=== PATIENT | female | born 1990 | race American Indian/Alaskan Native ===

== ENCOUNTER 2016-10-03 12:14 | Emergency (ER) | payer OTHER ==
[2016-10-03 12:22] VITALS: BP 153/83
[2016-10-03] MEDS ORDERED: DUONEB 0.5 MG-3 MG/3 ML SOLN IH ONE (15:19)
--- NOTE | 2016-10-03 15:42 | XRay Report ---
CHEST 2 VIEWS INDICATION: Chest pain, productive cough for 2 days. Wheezing, shortness of breath. COMPARISON: None similar at this institution. FINDINGS: PA and lateral chest radiographs demonstrate normal cardiomediastinal silhouette. Clear lungs. Intact bones. CONCLUSION: No acute disease in the chest. Thank you for the opportunity to participate in this patient's care.
--- NOTE | 2016-10-03 16:08 | Emergency Department Report ---
- General Chief Complaint: Upper Respiratory Infection Stated Complaint: CHEST PAIN/SOB/BODY ACHE Time Seen by Provider: 10/03/16 15:00 Source: patient Mode of arrival: Ambulatory Limitations: No Limitations - History of Present Illness Initial Comments: Patient presents with a productive cough of green sputum, fever, body aches. She does have a history of asthma and states that she has ran out of her nebulizer treatment, she is also out of her inhaler. Symptoms present 2 days. MD Complaint: fever, cough, rhinorrhea, nasal congestion -: Gradual Severity: severe Severity scale (0 -10): 10 Quality: aching Consistency: constant Improves With: nothing Worsens With: nothing Associated Symptoms: fever, chills, myalgias, rhinorrhea, nasal congestion, cough, shortness of breath Treatments Prior to Arrival: none - Related Data Previous Rx's Medication Instructions Recorded Last Taken Type ALBUTEROL Inhaler [ProAir HFA 2 puff IH QID PRN #1 inhalation 10/03/16 Unknown Rx Inhaler] ALBUTEROL NEB's [Proventil 0.083% 2.5 mg IH TID PRN #7 neb 10/03/16 Unknown Rx NEBS] Amoxicillin [Amoxicillin TAB] 875 mg PO BID #20 tablet 10/03/16 Unknown Rx Allergies Allergy/AdvReac Type Severity Reaction Status Date / Time gustavo Allergy Swelling Verified 10/03/16 12:20 ED Review of Systems ROS: Stated complaint: CHEST PAIN/SOB/BODY ACHE Other details as noted in HPI Constitutional: denies: chills, fever ENT: as per HPI Respiratory: cough, shortness of breath, wheezing Cardiovascular: dyspnea on exertion. denies: chest pain, palpitations Endocrine: no symptoms reported Gastrointestinal: denies: abdominal pain, nausea, diarrhea Genitourinary: denies: urgency, dysuria, discharge Musculoskeletal: as per HPI Skin: denies: rash, lesions Neurological: denies: headache, weakness, paresthesias Psychiatric: denies: anxiety, depression ED Past Medical Hx - Medications Home Medications: Home Medications Medication Instructions Recorded Confirmed Last Taken Type ALBUTEROL Inhaler [ProAir HFA 2 puff IH QID PRN #1 inhalation 10/03/16 Unknown Rx Inhaler] ALBUTEROL NEB's [Proventil 0.083% 2.5 mg IH TID PRN #7 neb 10/03/16 Unknown Rx NEBS] Amoxicillin [Amoxicillin TAB] 875 mg PO BID #20 tablet 10/03/16 Unknown Rx ED Physical Exam - General Limitations: No Limitations General appearance: alert, in no apparent distress, other (ill appearance but nontoxic) - Head Head exam: Present: atraumatic, normocephalic - Eye Eye exam: Present: normal appearance, PERRL - ENT ENT exam: Present: mucous membranes moist, TM's normal bilaterally - Expanded ENT Exam Expanded Mouth exam: Present: normal external inspection Teeth exam: Present: normal inspection Throat exam: Positive: tonsillar erythema - Neck Neck exam: Present: normal inspection, full ROM. Absent: tenderness - Expanded Neck Exam Expanded Neck exam: Absent: tenderness - Respiratory Respiratory exam: Present: wheezes (right lower lobe) - Cardiovascular Cardiovascular Exam: Present: regular rate, normal rhythm. Absent: systolic murmur, diastolic murmur, rubs, gallop - GI/Abdominal GI/Abdominal exam: Present: soft, normal bowel sounds - Neurological Exam Neurological exam: Present: alert, oriented X3 - Psychiatric Psychiatric exam: Present: normal affect, normal mood - Skin Skin exam: Present: warm, dry, intact, normal color. Absent: rash ED Course Vital Signs 10/03/16 10/03/16 10/03/16 12:20 15:40 15:55 Temperature 99.0 F Pulse Rate 110 H Pulse Rate [ 97 H 117 H Posterior Bilateral Throughout] Respiratory 20 Rate Respiratory 20 20 Rate [Posterior Bilateral Throughout] Blood Pressure 153/83 O2 Sat by Pulse 97 Oximetry ED Medical Decision Making - Medical Decision Making Patient presents with productive cough of green sputum. PE shows ill appearance (nontoxic) and red throat. Also positive for asthma. I will give her amoxicillin twice a day 10 days, albuterol inhaler, albuterol nebulizer medication. I'll advise her to follow up with outpatient clinic such as health department or self for asthma treatment. - Differential Diagnosis URI, sinusitis, asthma, Critical Care Time: No Critical care attestation.: If time is entered above; I have spent that time in minutes in the direct care of this critically ill patient, excluding procedure time. ED Disposition Clinical Impression: Upper respiratory infection, Asthma, Wheezing Disposition: DISCHARGED TO HOME OR SELFCARE Is pt being admited?: No Does the pt Need Aspirin: No Condition: Stable Instructions: Asthma (ED), Reactive Airways Disease (ED), Upper Respiratory Infection (ED), Cold Symptoms (ED) Additional Instructions: Follow up with outpatient clinic for your asthma. Do not take albuterol inhaler and neb at the same time. Prescriptions: ALBUTEROL Inhaler [ProAir HFA Inhaler] 2 puff IH QID PRN #1 inhalation PRN Reason: Shortness Of Breath ALBUTEROL NEB's [Proventil 0.083% NEBS] 2.5 mg IH TID PRN #7 neb PRN Reason: Wheezing Amoxicillin [Amoxicillin TAB] 875 mg PO BID #20 tablet Referrals: PRIMARY CARE, [Primary Care Provider] - 3-5 Days Forms: Work/School Release Form(ED) Time of Disposition: 16:13
== END 2016-10-03 16:26 | disposition home or self-care (01) ==
LOC: ED 12:14
DX: J06.9 Acute upper respiratory infection, unspecified (principal); J45.909 Unspecified asthma, uncomplicated; Z79.2 Long term (current) use of antibiotics; Z91.018 Allergy to other foods; Z79.899 Other long term (current) drug therapy
CPT/HCPCS: 71020; 94640

== ENCOUNTER 2018-12-27 05:33 | Emergency (ER) | payer MEDICAID, OTHER ==
[2018-12-27 05:41] VITALS: BP 117/73
--- NOTE | 2018-12-27 06:25 | Emergency Department Report ---
ED Eye Problem HPI - General Chief complaint: Eye Problems Stated complaint: EYE PAIN Time Seen by Provider: 12/27/18 05:40 Source: patient Mode of arrival: Ambulatory Limitations: No Limitations - History of Present Illness Initial comments: Patient is a 28-year-old -Turkmen female with no past medical history who presents to the ED with complaint of acute onset persistent painful erythematous right conjunctival with purulent discharge and matting for the last 24 hours. She denies vision changes, traumatic injury, dizziness, headache, chest pain, shortness of breath, nasal and sinus congestion or sore throat and cough. Patient states that she has been taking [id number] medication with no relief. Patient also states that there is no one else at home or at work with similar symptoms. MD chief complaint: eye pain, eye redness -: Sudden, hour(s) (24) Onset Description: sudden, awoke with symptoms Location: right eye Place: home If Injury: none Eye Symptoms: burning, redness, pain, discharge Severity: moderate Severity scale (0 -10): 5 If Pain, Quality: sharp, aching Consistency: constant Context: recent uri Associated Symptoms: rhinorrhea. denies: headache, neck pain, shortness of breath Treatments Prior to Arrival: irrigated eye - Related Data Patient Tetanus UTD: Yes Previous Rx's Medication Instructions Recorded Last Taken Type ALBUTEROL Inhaler (OR & NICU) 2 puff IH QID PRN #1 inhalation 10/03/16 Unknown Rx [ProAir HFA Inhaler] ALBUTEROL NEB's [Proventil 0.083% 2.5 mg IH TID PRN #7 neb 10/03/16 Unknown Rx NEBS] Amoxicillin [Amoxicillin TAB] 875 mg PO BID #20 tablet 10/03/16 Unknown Rx Gentamicin 0.3% Ophth Soln 1 drops OP Q4H #1 bottle 12/27/18 Unknown Rx Ibuprofen [Motrin] 600 mg PO Q8H PRN #20 tablet 12/27/18 Unknown Rx Allergies Allergy/AdvReac Type Severity Reaction Status Date / Time gustavo Allergy Swelling Verified 10/03/16 12:20 ED Review of Systems ROS: Stated complaint: EYE PAIN Other details as noted in HPI Comment: All other systems reviewed and negative Constitutional: no symptoms reported, see HPI. denies: chills, fever Eyes: as per HPI, eye pain, eye discharge, other (Erythematous right conjunctiva with matting and purulent discharge) ENT: as per HPI, congestion Respiratory: no symptoms reported. denies: cough, shortness of breath, SOB with exertion, wheezing Cardiovascular: as per HPI. denies: chest pain, dyspnea on exertion, syncope Endocrine: no symptoms reported, see HPI Gastrointestinal: as per HPI. denies: abdominal pain, nausea Musculoskeletal: as per HPI. denies: joint swelling, arthralgia Skin: as per HPI. denies: rash, lesions, change in color Neurological: as per HPI. denies: headache, numbness, paresthesias Psychiatric: as per HPI Hematological/Lymphatic: as per HPI ED Past Medical Hx - Past Medical History Previous Medical History?: Yes Hx Asthma: Yes - Surgical History Past Surgical History?: Yes Additional Surgical History: B/L hands - Social History Smoking Status: Current Every Day Smoker Substance Use Type: None - Medications Home Medications: Home Medications Medication Instructions Recorded Confirmed Last Taken Type ALBUTEROL Inhaler (OR & NICU) 2 puff IH QID PRN #1 inhalation 10/03/16 Unknown Rx [ProAir HFA Inhaler] ALBUTEROL NEB's [Proventil 0.083% 2.5 mg IH TID PRN #7 neb 10/03/16 Unknown Rx NEBS] Amoxicillin [Amoxicillin TAB] 875 mg PO BID #20 tablet 10/03/16 Unknown Rx Gentamicin 0.3% Ophth Soln 1 drops OP Q4H #1 bottle 12/27/18 Unknown Rx Ibuprofen [Motrin] 600 mg PO Q8H PRN #20 tablet 12/27/18 Unknown Rx ED Physical Exam - General Limitations: No Limitations General appearance: alert, in no apparent distress - Head Head exam: Present: atraumatic, normocephalic, normal inspection - Eye Eye exam: Present: PERRL, EOMI, other (grossly erythematous right conjunctiva with purulent discharge and matting) Pupils: Present: normal accommodation - ENT ENT exam: Present: normal exam, normal orophraynx, mucous membranes moist, TM's normal bilaterally, normal external ear exam - Neck Neck exam: Present: normal inspection, full ROM. Absent: lymphadenopathy - Respiratory Respiratory exam: Present: normal lung sounds bilaterally. Absent: respiratory distress, wheezes, rhonchi, chest wall tenderness - Cardiovascular Cardiovascular Exam: Present: regular rate, normal rhythm, normal heart sounds - GI/Abdominal GI/Abdominal exam: Present: soft, normal bowel sounds. Absent: tenderness, guarding - Rectal Rectal exam: Present: deferred - Extremities Exam Extremities exam: Present: normal inspection, full ROM, normal capillary refill - Back Exam Back exam: Present: normal inspection, full ROM. Absent: tenderness, CVA tenderness (L), muscle spasm - Neurological Exam Neurological exam: Present: alert, oriented X3, CN II-XII intact, normal gait, reflexes normal - Psychiatric Psychiatric exam: Present: normal affect - Skin Skin exam: Present: warm, dry, intact, normal color ED Course Vital Signs 12/27/18 05:40 Temperature 97.6 F Pulse Rate 85 Respiratory 16 Rate Blood Pressure 117/73 O2 Sat by Pulse 96 Oximetry ED Medical Decision Making - Medical Decision Making Patient is alert and oriented 3 and is not in distress. Patient was discharged home on medications this on the physical exam findings and history. Patient is hemodynamically stable and was discharged home on gentamicin eyedrops with pain medications. Patient advised to follow-up with her primary care physician in 5-7 days for reevaluation or return to the ED immediately if symptoms get worse. - Differential Diagnosis Acute bacterial conjunctivitis, Right eye trauma, allergic conjunctivitis Critical care attestation.: If time is entered above; I have spent that time in minutes in the direct care of this critically ill patient, excluding procedure time. ED Disposition Clinical Impression: Acute bacterial conjunctivitis of right eye, Acute pain in right eye Disposition: DC-01 TO HOME OR SELFCARE Is pt being admited?: No Does the pt Need Aspirin: No Condition: Stable Instructions: Conjunctivitis (ED) Additional Instructions: Take medications for pain, apply the eyedrops to the affected eyes as advised. Follow-up with your primary care physician in 5-7 days for reevaluation. Return to the ED immediately if symptoms get worse. Prescriptions: Gentamicin 0.3% Ophth Soln 1 drops OP Q4H #1 bottle Ibuprofen [Motrin] 600 mg PO Q8H PRN #20 tablet PRN Reason: Pain Referrals: LIZET VORA MD [Primary Care Provider] - 3-5 Days Time of Disposition: 06:30 Print Language: TAJIK
== END 2018-12-27 06:53 | disposition home or self-care (01) ==
LOC: ED 05:33
DX: H10.33 Unspecified acute conjunctivitis, bilateral (principal); J45.909 Unspecified asthma, uncomplicated; F17.200 Nicotine dependence, unspecified, uncomplicated
CPT/HCPCS: 99282

== ENCOUNTER 2019-02-22 05:41 | Emergency (ER) | payer MEDICAID ==
[2019-02-22 05:49] VITALS: BP 128/89
[2019-02-22] MEDS ORDERED: IBUPROFEN PO ONE (07:46)
--- NOTE | 2019-02-22 07:50 | Emergency Department Report ---
ED Lower Extremity HPI - General Chief Complaint: Extremity Injury, Lower Stated Complaint: KNEE PAIN Time Seen by Provider: 02/22/19 07:03 Source: patient Mode of arrival: Ambulatory Limitations: No Limitations - History of Present Illness Initial Comments: 28 year old -Sudanese female presents to the emergency room for right knee pain. Patient reports she hit her right knee on a dresser yesterday. Patient is able to walk. Patient has not taken anything for pain. She denies any swelling. Patient has a past medical history of asthma currently takes no medications on a daily basis and has no known drug allergies. MD Complaint: knee injury Onset/Timin -: days(s) Injury: Knee: Right Type of Injury: blunt Severity scale (0 -10): 8 Improves With: nothing Worsens With: nothing Context: direct blow Treatments Prior to Arrival: other (NONE) - Related Data Previous Rx's Medication Instructions Recorded Last Taken Type ALBUTEROL Inhaler (OR & NICU) 2 puff IH QID PRN #1 inhalation 10/03/16 Unknown Rx [ProAir HFA Inhaler] ALBUTEROL NEB's [Proventil 0.083% 2.5 mg IH TID PRN #7 neb 10/03/16 Unknown Rx NEBS] Amoxicillin [Amoxicillin TAB] 875 mg PO BID #20 tablet 10/03/16 Unknown Rx Gentamicin 0.3% Ophth Soln 1 drops OP Q4H #1 bottle 12/27/18 Unknown Rx Ibuprofen [Motrin] 600 mg PO Q8H PRN #20 tablet 12/27/18 Unknown Rx Allergies Allergy/AdvReac Type Severity Reaction Status Date / Time gustavo Allergy Swelling Verified 10/03/16 12:20 ED Review of Systems ROS: Stated complaint: KNEE PAIN Other details as noted in HPI Comment: All other systems reviewed and negative Musculoskeletal: arthralgia (right knee) ED Past Medical Hx - Past Medical History Previous Medical History?: Yes Hx Asthma: Yes - Surgical History Additional Surgical History: B/L hands - Social History Smoking Status: Current Every Day Smoker Substance Use Type: None - Medications Home Medications: Home Medications Medication Instructions Recorded Confirmed Last Taken Type ALBUTEROL Inhaler (OR & NICU) 2 puff IH QID PRN #1 inhalation 10/03/16 Unknown Rx [ProAir HFA Inhaler] ALBUTEROL NEB's [Proventil 0.083% 2.5 mg IH TID PRN #7 neb 10/03/16 Unknown Rx NEBS] Amoxicillin [Amoxicillin TAB] 875 mg PO BID #20 tablet 10/03/16 Unknown Rx Gentamicin 0.3% Ophth Soln 1 drops OP Q4H #1 bottle 12/27/18 Unknown Rx Ibuprofen [Motrin] 600 mg PO Q8H PRN #20 tablet 12/27/18 Unknown Rx ED Physical Exam - General Limitations: No Limitations General appearance: alert, in no apparent distress - Head Head exam: Present: atraumatic, normocephalic - Eye Eye exam: Present: normal appearance - ENT ENT exam: Present: mucous membranes moist - Expanded Lower Extremity Exam Right Hip exam: Present: full ROM Upper Leg exam: Present: normal inspection, full ROM Knee exam: Present: full ROM, tenderness. Absent: swelling, abrasion, laceration, ecchymosis, deformity, crepidus ED Course Vital Signs 02/22/19 05:44 Temperature 97.9 F Pulse Rate 109 H Respiratory 18 Rate Blood Pressure 128/89 O2 Sat by Pulse 97 Oximetry ED Lower Extremity MDM - Radiology Data Radiology results: report reviewed Patient: RED CABRERA MR#: [id number] : 1990 Acct:[id number] Age/Sex: 28 / F ADM Date: 02/22/19 Loc: ED Attending Dr: Ordering Physician: NILA DOWD Date of Service: 02/22/19 Procedure(s): XR knee 1-2V RT Accession Number(s): [id number] cc: NILA DOWD Fluoro Time In Minutes: RIGHT KNEE RADIOGRAPHS INDICATION: Knee injury, pain. COMPARISON: None similar. FINDINGS: AP and lateral left knee radiographs demonstrate normal articulation and appearance. No suprapatellar effusion. CONCLUSION: Normal right knee radiographs. Thank you for the opportunity to participate in this patient's care. Transcribed By: RS Dictated By: AMANDA SMITH MD Electronically Authenticated By: AMANDA SMITH MD Signed Date/Time: 02/22/19814 DD/ 3 TD/TT: 02/22/19814 - Medical Decision Making 28-year-old female comes in complaining of right knee pain after hitting her knee on a dresser. Patient no pain medication. X-ray shows normal examination patient was given ibuprofen for pain management. Patient be discharged home with instructions to take pain medication as needed. Critical care attestation.: If time is entered above; I have spent that time in minutes in the direct care of this critically ill patient, excluding procedure time. ED Disposition Clinical Impression: Contusion of knee, right Qualifiers: Encounter type: initial encounter Qualified Code(s): S80.01XA - Contusion of right knee, initial encounter Disposition: DC- TO HOME OR SELFCARE Is pt being admited?: No Does the pt Need Aspirin: No Condition: Stable Instructions: Knee Pain (ED) Additional Instructions: Take [id number] Tylenol and/or Motrin as needed for pain management. Referrals: LIZET VORA MD [Primary Care Provider] - 3-5 Days
--- NOTE | 2019-02-22 08:16 | XRay Report ---
RIGHT KNEE RADIOGRAPHS INDICATION: Knee injury, pain. COMPARISON: None similar. FINDINGS: AP and lateral left knee radiographs demonstrate normal articulation and appearance. No suprapatellar effusion. CONCLUSION: Normal right knee radiographs. Thank you for the opportunity to participate in this patient's care.
== END 2019-02-22 08:41 | disposition home or self-care (01) ==
LOC: ED 05:41
DX: S80.01XA Contusion of right knee, initial encounter (principal); F17.200 Nicotine dependence, unspecified, uncomplicated; J45.909 Unspecified asthma, uncomplicated; Z91.018 Allergy to other foods; W22.03XA Walked into furniture, initial encounter; Y93.89 Activity, other specified; Y92.89 Other specified places as the place of occurrence of the external cause; Y99.8 Other external cause status